=== PATIENT | female | born 1980 | race African-American/Black ===

== ENCOUNTER 2025-02-18 21:32 | Emergency (ER) | payer SELFPAY ==
[~2025-02-18] VITALS: Ht 152.4 cm; Wt 130.0 kg
[2025-02-18 21:42] VITALS: O2SAT 97
[2025-02-18] MEDS: ONDANSETRON 4MG ODT PO ONE (22:19)
[2025-02-18 22:35] VITALS: BP 161/85; PULSE 70; RESP 18; TEMP 36.8; O2SAT 98
== END 2025-02-18 22:38 | disposition home or self-care (01) ==
LOC: ER 21:32
DX: T51.0X1A Toxic effect of ethanol, accidental (unintentional), initial encounter (principal); R11.2 Nausea with vomiting, unspecified; I10 Essential (primary) hypertension; F41.9 Anxiety disorder, unspecified; Z88.5 Allergy status to narcotic agent; Y92.89 Other specified places as the place of occurrence of the external cause
CPT/HCPCS: 99283; Q0162